=== PATIENT | male | born 1945 | race Caucasian/White ===

== ENCOUNTER → 2018-03-28 | Outpatient (CLI) | payer MEDICARE, OTHER ==
[2018-03-28 13:24] LABS: HEMATOCRIT 62.6 % (42.0-52.0); HEMOGLOBIN 20.6 g/dL (13.5-18.0)
== END ==
LOC: LAB 12:30
PROVIDERS: Internal Medicine
DX: D75.1 Secondary polycythemia (principal)

== ENCOUNTER → 2018-04-02 | Outpatient (CLI) | payer MEDICARE, OTHER ==
[2018-04-02 08:52] LABS: HEMOGLOBIN 19.9 g/dL (13.5-18.0)
[2018-04-02 09:22] LABS: HEMATOCRIT 60.6 % (42.0-52.0)
== END ==
LOC: LAB 08:36
PROVIDERS: Family Medicine
DX: D75.1 Secondary polycythemia (principal)

== ENCOUNTER → 2018-04-09 | Outpatient (CLI) | payer MEDICARE, OTHER ==
[2018-04-09 09:00] LABS: HEMATOCRIT 57.3 % (42.0-52.0); HEMOGLOBIN 19.2 g/dL (13.5-18.0)
== END ==
LOC: LAB 08:44
PROVIDERS: Family Medicine
DX: D75.1 Secondary polycythemia (principal)

== ENCOUNTER → 2018-04-17 | Outpatient (CLI) | payer MEDICARE, OTHER ==
[2018-04-17 10:10] LABS: HEMATOCRIT 58.7 % (42.0-52.0); HEMOGLOBIN 19.3 g/dL (13.5-18.0)
== END ==
LOC: LAB 09:50
PROVIDERS: Family Medicine
DX: D75.1 Secondary polycythemia (principal)

== ENCOUNTER → 2018-04-24 | Outpatient (CLI) | payer MEDICARE, OTHER ==
[2018-04-24 09:01] LABS: HEMOGLOBIN 19.9 g/dL (13.5-18.0)
[2018-04-24 09:05] LABS: HEMATOCRIT 60.6 % (42.0-52.0)
== END ==
LOC: LAB 08:46
PROVIDERS: Family Medicine
DX: D75.1 Secondary polycythemia (principal)

== ENCOUNTER → 2018-05-01 | Outpatient (CLI) | payer MEDICARE, OTHER ==
[2018-05-01 08:49] LABS: HEMATOCRIT 57.3 % (42.0-52.0); HEMOGLOBIN 18.9 g/dL (13.5-18.0)
== END ==
LOC: LAB 08:33
PROVIDERS: Family Medicine
DX: D75.1 Secondary polycythemia (principal)

== ENCOUNTER → 2018-05-09 | Outpatient (CLI) | payer MEDICARE, OTHER ==
[2018-05-09 08:50] LABS: HEMATOCRIT 57.1 % (42.0-52.0); HEMOGLOBIN 18.6 g/dL (13.5-18.0); MEAN CELL VOLUME 96 fl (78-100); MEAN CORPUSCULAR HEMOGLOBIN 31 pg (27-31); MEAN CORPUSCULAR HGB CONC 33 g/dL (33-37); MEAN PLATELET VOLUME 11.6 fl (7.4-10.4); PLATELET COUNT 357 K/mm3 (130-400); RED BLOOD COUNT 5.94 M/mm3 (4.20-5.60); RED CELL DISTRIBUTION WIDTH 15.6 % (11.5-14.5); WHITE BLOOD COUNT 18.2 K/mm3 (4.8-10.8)
[2018-05-09 10:11] LABS: LYMPHOCYTE 7 % (20-51); MONOCYTE 3 % (3-10); NEUTROPHILS 89 % (42-75)
== END ==
LOC: LAB 08:37
PROVIDERS: Family Medicine
DX: D47.1 Chronic myeloproliferative disease (principal)

== ENCOUNTER → 2018-05-13 | Outpatient (CLI) | payer MEDICARE, OTHER ==
[2018-05-13 09:04] LABS: HEMATOCRIT 56.8 % (42.0-52.0); HEMOGLOBIN 18.8 g/dL (13.5-18.0); MEAN CELL VOLUME 96 fl (78-100); MEAN CORPUSCULAR HEMOGLOBIN 32 pg (27-31); MEAN CORPUSCULAR HGB CONC 33 g/dL (33-37); MEAN PLATELET VOLUME 11.8 fl (7.4-10.4); PLATELET COUNT 325 K/mm3 (130-400); RED BLOOD COUNT 5.95 M/mm3 (4.20-5.60); RED CELL DISTRIBUTION WIDTH 15.6 % (11.5-14.5); WHITE BLOOD COUNT 16.6 K/mm3 (4.8-10.8)
[2018-05-13 09:34] LABS: LYMPHOCYTE 6 % (20-51); MONOCYTE 6 % (3-10); NEUTROPHILS 88 % (42-75)
== END ==
LOC: LAB 08:36
PROVIDERS: Family Medicine
DX: D47.1 Chronic myeloproliferative disease (principal)

== ENCOUNTER → 2018-05-20 | Outpatient (CLI) | payer MEDICARE, OTHER ==
[2018-05-20 08:48] LABS: HEMATOCRIT 58.1 % (42.0-52.0); MEAN CELL VOLUME 96 fl (78-100); MEAN CORPUSCULAR HEMOGLOBIN 31 pg (27-31); MEAN CORPUSCULAR HGB CONC 33 g/dL (33-37); MEAN PLATELET VOLUME 11.5 fl (7.4-10.4); PLATELET COUNT 277 K/mm3 (130-400); RED BLOOD COUNT 6.05 M/mm3 (4.20-5.60); RED CELL DISTRIBUTION WIDTH 16.3 % (11.5-14.5); WHITE BLOOD COUNT 15.4 K/mm3 (4.8-10.8)
[2018-05-20 10:14] LABS: LYMPHOCYTE 9 % (20-51); MONOCYTE 5 % (3-10); NEUTROPHILS 86 % (42-75)
== END ==
LOC: LAB 08:34
PROVIDERS: Family Medicine
DX: D47.1 Chronic myeloproliferative disease (principal)

== ENCOUNTER → 2018-05-26 | Outpatient (CLI) | payer MEDICARE, OTHER ==
[2018-05-26 08:56] LABS: HEMATOCRIT 56.9 % (42.0-52.0); HEMOGLOBIN 18.8 g/dL (13.5-18.0); MEAN CELL VOLUME 97 fl (78-100); MEAN CORPUSCULAR HEMOGLOBIN 32 pg (27-31); MEAN CORPUSCULAR HGB CONC 33 g/dL (33-37); MEAN PLATELET VOLUME 11.5 fl (7.4-10.4); PLATELET COUNT 248 K/mm3 (130-400); RED BLOOD COUNT 5.89 M/mm3 (4.20-5.60); RED CELL DISTRIBUTION WIDTH 15.9 % (11.5-14.5); WHITE BLOOD COUNT 16.7 K/mm3 (4.8-10.8)
[2018-05-26 09:41] LABS: NEUTROPHILS 90 % (42-75)
[2018-05-26 09:42] LABS: LYMPHOCYTE 7 % (20-51); MONOCYTE 3 % (3-10)
== END ==
LOC: LAB 08:40
PROVIDERS: Family Medicine
DX: D47.1 Chronic myeloproliferative disease (principal)

== ENCOUNTER → 2018-06-02 | Outpatient (CLI) | payer MEDICARE, OTHER ==
[2018-06-02 08:52] LABS: HEMOGLOBIN 18.9 g/dL (13.5-18.0); MEAN CELL VOLUME 96 fl (78-100); MEAN CORPUSCULAR HEMOGLOBIN 32 pg (27-31); MEAN CORPUSCULAR HGB CONC 33 g/dL (33-37); PLATELET COUNT 267 K/mm3 (130-400); RED BLOOD COUNT 5.91 M/mm3 (4.20-5.60); WHITE BLOOD COUNT 19.2 K/mm3 (4.8-10.8)
[2018-06-02 09:21] LABS: BAND 13 % (0-10); LYMPHOCYTE 10 % (20-51); MONOCYTE 4 % (3-10); NEUTROPHILS 70 % (42-75)
[2018-06-02 09:34] LABS: ALBUMIN 4.8 g/dL (3.5-5.0); CALCIUM 9.5 mg/dL (8.4-10.2); POTASSIUM 3.6 mmol/L (3.6-5.0); TOTAL BILIRUBIN 1.6 mg/dL (0.2-1.3); TOTAL PROTEIN 7.3 g/dL (6.3-8.2)
== END ==
LOC: LAB 08:41
PROVIDERS: Family Medicine
DX: D47.1 Chronic myeloproliferative disease (principal)

== ENCOUNTER → 2018-06-09 | Outpatient (CLI) | payer MEDICARE, OTHER ==
[2018-06-09 08:54] LABS: HEMATOCRIT 56.3 % (42.0-52.0); HEMOGLOBIN 18.3 g/dL (13.5-18.0); MEAN CELL VOLUME 96 fl (78-100); MEAN CORPUSCULAR HEMOGLOBIN 31 pg (27-31); MEAN CORPUSCULAR HGB CONC 33 g/dL (33-37); MEAN PLATELET VOLUME 11.8 fl (7.4-10.4); PLATELET COUNT 260 K/mm3 (130-400); RED BLOOD COUNT 5.86 M/mm3 (4.20-5.60); RED CELL DISTRIBUTION WIDTH 15.7 % (11.5-14.5); WHITE BLOOD COUNT 20.4 K/mm3 (4.8-10.8)
[2018-06-09 09:16] LABS: LYMPHOCYTE 6 % (20-51); MONOCYTE 3 % (3-10); NEUTROPHILS 91 % (42-75)
== END ==
LOC: LAB 08:44
PROVIDERS: Family Medicine
DX: D47.1 Chronic myeloproliferative disease (principal)

== ENCOUNTER → 2018-06-16 | Outpatient (CLI) | payer MEDICARE, OTHER ==
[2018-06-16 08:52] LABS: HEMATOCRIT 55.1 % (42.0-52.0); MEAN CELL VOLUME 95 fl (78-100); MEAN CORPUSCULAR HEMOGLOBIN 31 pg (27-31); MEAN CORPUSCULAR HGB CONC 33 g/dL (33-37); MEAN PLATELET VOLUME 11.8 fl (7.4-10.4); PLATELET COUNT 215 K/mm3 (130-400); RED CELL DISTRIBUTION WIDTH 15.4 % (11.5-14.5); WHITE BLOOD COUNT 17.8 K/mm3 (4.8-10.8)
[2018-06-16 09:28] LABS: BAND 1 % (0-10); LYMPHOCYTE 9 % (20-51); MONOCYTE 1 % (3-10); NEUTROPHILS 87 % (42-75)
== END ==
LOC: LAB 08:40
PROVIDERS: Family Medicine
DX: C94.6 Myelodysplastic disease, not elsewhere classified (principal)

== ENCOUNTER → 2018-06-23 | Outpatient (CLI) | payer MEDICARE, OTHER ==
[2018-06-23 08:47] LABS: HEMATOCRIT 51.8 % (42.0-52.0); HEMOGLOBIN 17.1 g/dL (13.5-18.0); MEAN CELL VOLUME 95 fl (78-100); MEAN CORPUSCULAR HEMOGLOBIN 32 pg (27-31); MEAN CORPUSCULAR HGB CONC 33 g/dL (33-37); MEAN PLATELET VOLUME 11.7 fl (7.4-10.4); PLATELET COUNT 147 K/mm3 (130-400); RED BLOOD COUNT 5.43 M/mm3 (4.20-5.60); RED CELL DISTRIBUTION WIDTH 15.7 % (11.5-14.5); WHITE BLOOD COUNT 15.8 K/mm3 (4.8-10.8)
[2018-06-23 09:08] LABS: LYMPHOCYTE 8 % (20-51); MONOCYTE 3 % (3-10); NEUTROPHILS 83 % (42-75)
== END ==
LOC: LAB 08:36
PROVIDERS: Family Medicine
DX: C94.6 Myelodysplastic disease, not elsewhere classified (principal)

== ENCOUNTER → 2018-06-30 | Outpatient (CLI) | payer MEDICARE, OTHER ==
[2018-06-30 08:58] LABS: HEMATOCRIT 49.7 % (42.0-52.0); MEAN CELL VOLUME 96 fl (78-100); MEAN CORPUSCULAR HEMOGLOBIN 31 pg (27-31); MEAN CORPUSCULAR HGB CONC 32 g/dL (33-37); PLATELET COUNT 144 K/mm3 (130-400); RED BLOOD COUNT 5.17 M/mm3 (4.20-5.60); RED CELL DISTRIBUTION WIDTH 15.8 % (11.5-14.5); WHITE BLOOD COUNT 16.3 K/mm3 (4.8-10.8)
[2018-06-30 09:38] LABS: MEAN PLATELET VOLUME 12.1 fl (7.4-10.4)
[2018-06-30 10:31] LABS: BAND 1 % (0-10); LYMPHOCYTE 8 % (20-51); MONOCYTE 3 % (3-10); NEUTROPHILS 85 % (42-75); OVALOCYTES 1+
== END ==
LOC: LAB 08:47
PROVIDERS: Family Medicine
DX: D47.1 Chronic myeloproliferative disease (principal)

== ENCOUNTER → 2018-07-07 | Outpatient (CLI) | payer MEDICARE, OTHER ==
[2018-07-07 09:02] LABS: HEMATOCRIT 46.9 % (42.0-52.0); HEMOGLOBIN 15.2 g/dL (13.5-18.0); MEAN CELL VOLUME 97 fl (78-100); MEAN CORPUSCULAR HEMOGLOBIN 31 pg (27-31); MEAN CORPUSCULAR HGB CONC 32 g/dL (33-37); MEAN PLATELET VOLUME 11.2 fl (7.4-10.4); PLATELET COUNT 228 K/mm3 (130-400); RED BLOOD COUNT 4.85 M/mm3 (4.20-5.60); WHITE BLOOD COUNT 16.8 K/mm3 (4.8-10.8)
[2018-07-07 09:34] LABS: NEUTROPHILS 88 % (42-75)
[2018-07-07 09:35] LABS: LYMPHOCYTE 11 % (20-51); MONOCYTE 1 % (3-10); OVALOCYTES 2+
== END ==
LOC: LAB 08:45
PROVIDERS: Family Medicine
DX: D47.1 Chronic myeloproliferative disease (principal)

== ENCOUNTER → 2018-07-14 | Outpatient (CLI) | payer MEDICARE, OTHER ==
[2018-07-14 15:48] LABS: HEMATOCRIT 45.2 % (42.0-52.0); HEMOGLOBIN 14.5 g/dL (13.5-18.0); MEAN CELL VOLUME 98 fl (78-100); MEAN CORPUSCULAR HEMOGLOBIN 32 pg (27-31); MEAN CORPUSCULAR HGB CONC 32 g/dL (33-37); MEAN PLATELET VOLUME 11.5 fl (7.4-10.4); PLATELET COUNT 238 K/mm3 (130-400); RED BLOOD COUNT 4.61 M/mm3 (4.20-5.60); RED CELL DISTRIBUTION WIDTH 16.7 % (11.5-14.5); WHITE BLOOD COUNT 15.6 K/mm3 (4.8-10.8)
[2018-07-14 16:20] LABS: ALBUMIN 4.4 g/dL (3.5-5.0); CALCIUM 9.3 mg/dL (8.4-10.2); POTASSIUM 3.8 mmol/L (3.6-5.0); TOTAL BILIRUBIN 0.9 mg/dL (0.2-1.3); TOTAL PROTEIN 6.8 g/dL (6.3-8.2)
[2018-07-14 16:25] LABS: LYMPHOCYTE 8 % (20-51); MONOCYTE 5 % (3-10); NEUTROPHILS 86 % (42-75)
== END ==
LOC: LAB 15:27
PROVIDERS: Family Medicine
DX: D47.1 Chronic myeloproliferative disease (principal)

== ENCOUNTER → 2018-08-11 | Outpatient (CLI) | payer MEDICARE, OTHER ==
[2018-08-11 15:08] LABS: HEMATOCRIT 43.4 % (42.0-52.0); MEAN CELL VOLUME 98 fl (78-100); MEAN CORPUSCULAR HEMOGLOBIN 32 pg (27-31); MEAN CORPUSCULAR HGB CONC 32 g/dL (33-37); MEAN PLATELET VOLUME 10.4 fl (7.4-10.4); PLATELET COUNT 226 K/mm3 (130-400); RED BLOOD COUNT 4.43 M/mm3 (4.20-5.60); RED CELL DISTRIBUTION WIDTH 16.4 % (11.5-14.5); WHITE BLOOD COUNT 11.1 K/mm3 (4.8-10.8)
[2018-08-11 15:57] LABS: LYMPHOCYTE 13 % (20-51); NEUTROPHILS 86 % (42-75)
[2018-08-11 15:58] LABS: MONOCYTE 0 % (3-10)
== END ==
LOC: LAB 14:48
PROVIDERS: Family Medicine
DX: D47.1 Chronic myeloproliferative disease (principal)

== ENCOUNTER → 2018-09-01 | Outpatient (CLI) | payer MEDICARE, OTHER ==
[2018-09-01 15:18] LABS: HEMATOCRIT 44.6 % (42.0-52.0); HEMOGLOBIN 14.6 g/dL (13.5-18.0); MEAN CELL VOLUME 101 fl (78-100); MEAN CORPUSCULAR HEMOGLOBIN 33 pg (27-31); MEAN CORPUSCULAR HGB CONC 33 g/dL (33-37); MEAN PLATELET VOLUME 11.3 fl (7.4-10.4); PLATELET COUNT 169 K/mm3 (130-400); RED BLOOD COUNT 4.44 M/mm3 (4.20-5.60); WHITE BLOOD COUNT 14.7 K/mm3 (4.8-10.8)
[2018-09-01 16:13] LABS: LYMPHOCYTE 18 % (20-51); MONOCYTE 2 % (3-10); NEUTROPHILS 80 % (42-75)
== END ==
LOC: LAB 15:06
PROVIDERS: Family Medicine
DX: D47.1 Chronic myeloproliferative disease (principal)

== ENCOUNTER → 2018-09-22 | Outpatient (CLI) | payer MEDICARE, OTHER ==
[2018-09-22 15:38] LABS: HEMATOCRIT 44.3 % (42.0-52.0); HEMOGLOBIN 14.5 g/dL (13.5-18.0); MEAN CELL VOLUME 104 fl (78-100); MEAN CORPUSCULAR HEMOGLOBIN 34 pg (27-31); MEAN CORPUSCULAR HGB CONC 33 g/dL (33-37); MEAN PLATELET VOLUME 11.8 fl (7.4-10.4); PLATELET COUNT 127 K/mm3 (130-400); RED BLOOD COUNT 4.28 M/mm3 (4.20-5.60); RED CELL DISTRIBUTION WIDTH 17.1 % (11.5-14.5)
[2018-09-22 16:50] LABS: LYMPHOCYTE 12 % (20-51); MONOCYTE 6 % (3-10); NEUTROPHILS 79 % (42-75)
== END ==
LOC: LAB 15:08
PROVIDERS: Family Medicine
DX: C94.6 Myelodysplastic disease, not elsewhere classified (principal)

== ENCOUNTER → 2018-10-13 | Outpatient (CLI) | payer MEDICARE, OTHER ==
[2018-10-13 15:12] LABS: HEMATOCRIT 43.7 % (42.0-52.0); MEAN CELL VOLUME 106 fl (78-100); MEAN CORPUSCULAR HGB CONC 34 g/dL (33-37); PLATELET COUNT 248 K/mm3 (130-400); RED BLOOD COUNT 4.11 M/mm3 (4.20-5.60); RED CELL DISTRIBUTION WIDTH 17.4 % (11.5-14.5); WHITE BLOOD COUNT 11.1 K/mm3 (4.8-10.8)
[2018-10-13 15:26] LABS: MEAN CORPUSCULAR HEMOGLOBIN 37 pg (27-31)
[2018-10-13 15:42] LABS: ALBUMIN 4.6 g/dL (3.5-5.0); CALCIUM 9.7 mg/dL (8.4-10.2); POTASSIUM 4.3 mmol/L (3.6-5.0); TOTAL PROTEIN 6.7 g/dL (6.3-8.2)
[2018-10-13 15:46] LABS: LYMPHOCYTE 16 % (20-51); MONOCYTE 2 % (3-10); NEUTROPHILS 81 % (42-75)
== END ==
LOC: LAB 15:00
PROVIDERS: Family Medicine
DX: D47.1 Chronic myeloproliferative disease (principal)

== ENCOUNTER → 2018-11-11 | Outpatient (CLI) | payer MEDICARE, OTHER ==
[2018-11-11 14:17] LABS: HEMATOCRIT 42.4 % (42.0-52.0); HEMOGLOBIN 14.5 g/dL (13.5-18.0); MEAN CELL VOLUME 110 fl (78-100); MEAN CORPUSCULAR HGB CONC 34 g/dL (33-37); PLATELET COUNT 215 K/mm3 (130-400); RED BLOOD COUNT 3.84 M/mm3 (4.20-5.60); RED CELL DISTRIBUTION WIDTH 16.1 % (11.5-14.5)
[2018-11-11 14:21] LABS: MEAN CORPUSCULAR HEMOGLOBIN 38 pg (27-31)
[2018-11-11 15:18] LABS: LYMPHOCYTE 9 % (20-51); MONOCYTE 2 % (3-10); NEUTROPHILS 87 % (42-75)
== END ==
LOC: LAB 14:08
PROVIDERS: Family Medicine
DX: C94.6 Myelodysplastic disease, not elsewhere classified (principal)

== ENCOUNTER → 2018-12-08 | Outpatient (CLI) | payer MEDICARE, OTHER ==
[2018-12-08 09:09] LABS: HEMATOCRIT 42.3 % (42.0-52.0); HEMOGLOBIN 15.2 g/dL (13.5-18.0); MEAN CORPUSCULAR HGB CONC 36 g/dL (33-37); MEAN PLATELET VOLUME 11.3 fl (7.4-10.4); PLATELET COUNT 213 K/mm3 (130-400); RED CELL DISTRIBUTION WIDTH 14.6 % (11.5-14.5); WHITE BLOOD COUNT 10.9 K/mm3 (4.8-10.8)
[2018-12-08 09:33] LABS: MEAN CELL VOLUME 111 fl (78-100); MEAN CORPUSCULAR HEMOGLOBIN 40 pg (27-31)
[2018-12-08 09:34] LABS: LYMPHOCYTE 9 % (20-51); MONOCYTE 3 % (3-10); NEUTROPHILS 88 % (42-75)
== END ==
LOC: LAB 08:54
PROVIDERS: Family Medicine
DX: D47.1 Chronic myeloproliferative disease (principal)

== ENCOUNTER → 2019-01-05 | Outpatient (CLI) | payer MEDICARE, OTHER ==
[2019-01-05 09:08] LABS: HEMOGLOBIN 15.2 g/dL (13.5-18.0); MEAN CORPUSCULAR HGB CONC 35 g/dL (33-37); MEAN PLATELET VOLUME 11.8 fl (7.4-10.4); PLATELET COUNT 179 K/mm3 (130-400); RED BLOOD COUNT 3.83 M/mm3 (4.20-5.60); RED CELL DISTRIBUTION WIDTH 13.5 % (11.5-14.5); WHITE BLOOD COUNT 11.7 K/mm3 (4.8-10.8)
[2019-01-05 09:11] LABS: ALBUMIN 4.4 g/dL (3.4-4.8)
[2019-01-05 09:13] LABS: CALCIUM 9.4 mg/dL (8.3-10.5)
[2019-01-05 09:14] LABS: TOTAL PROTEIN 6.7 g/dL (6.2-8.1)
[2019-01-05 09:27] LABS: MEAN CELL VOLUME 115 fl (78-100); MEAN CORPUSCULAR HEMOGLOBIN 40 pg (27-31)
[2019-01-05 09:50] LABS: LYMPHOCYTE 6 % (20-51); MONOCYTE 3 % (3-10); NEUTROPHILS 90 % (42-75); OVALOCYTES 2+
== END ==
LOC: LAB 08:44
PROVIDERS: Family Medicine
DX: D47.1 Chronic myeloproliferative disease (principal)

== ENCOUNTER → 2019-02-02 | Outpatient (CLI) | payer MEDICARE, OTHER ==
[2019-02-02 10:28] LABS: HEMATOCRIT 43.1 % (42.0-52.0); HEMOGLOBIN 14.9 g/dL (13.5-18.0); MEAN CORPUSCULAR HGB CONC 35 g/dL (33-37); MEAN PLATELET VOLUME 11.4 fl (7.4-10.4); PLATELET COUNT 199 K/mm3 (130-400); RED BLOOD COUNT 3.76 M/mm3 (4.20-5.60); RED CELL DISTRIBUTION WIDTH 13.5 % (11.5-14.5); WHITE BLOOD COUNT 10.5 K/mm3 (4.8-10.8)
[2019-02-02 10:43] LABS: MEAN CELL VOLUME 115 fl (78-100); MEAN CORPUSCULAR HEMOGLOBIN 40 pg (27-31)
[2019-02-02 10:54] LABS: LYMPHOCYTE 6 % (20-51); MONOCYTE 5 % (3-10); NEUTROPHILS 87 % (42-75)
== END ==
LOC: LAB 10:05
PROVIDERS: Family Medicine
DX: D47.1 Chronic myeloproliferative disease (principal)

== ENCOUNTER → 2019-03-30 | Outpatient (CLI) | payer MEDICARE, OTHER ==
[2019-03-30 13:30] LABS: HEMOGLOBIN 15.3 g/dL (13.5-18.0); MEAN CORPUSCULAR HGB CONC 35 g/dL (33-37); MEAN PLATELET VOLUME 11.7 fl (7.4-10.4); PLATELET COUNT 187 K/mm3 (130-400); RED BLOOD COUNT 3.91 M/mm3 (4.20-5.60); RED CELL DISTRIBUTION WIDTH 13.8 % (11.5-14.5); WHITE BLOOD COUNT 12.7 K/mm3 (4.8-10.8)
[2019-03-30 13:52] LABS: ALBUMIN 4.3 g/dL (3.4-4.8)
[2019-03-30 13:53] LABS: POTASSIUM 4.2 mmol/L (3.5-5.1)
[2019-03-30 13:54] LABS: CALCIUM 9.3 mg/dL (8.3-10.5)
[2019-03-30 13:55] LABS: TOTAL PROTEIN 6.7 g/dL (6.2-8.1)
[2019-03-30 13:57] LABS: TOTAL BILIRUBIN 1.4 mg/dL (0.2-1.2)
[2019-03-30 14:36] LABS: MEAN CELL VOLUME 113 fl (78-100); MEAN CORPUSCULAR HEMOGLOBIN 39 pg (27-31)
[2019-03-30 14:38] LABS: LYMPHOCYTE 12 % (20-51); MONOCYTE 5 % (3-10); NEUTROPHILS 81 % (42-75)
== END ==
LOC: LAB 13:13
PROVIDERS: Family Medicine
DX: D47.1 Chronic myeloproliferative disease (principal)

== ENCOUNTER → 2019-04-27 | Outpatient (CLI) | payer MEDICARE, OTHER ==
[2019-04-27 09:49] LABS: HEMATOCRIT 45.8 % (42.0-52.0); HEMOGLOBIN 15.9 g/dL (13.5-18.0); MEAN CORPUSCULAR HGB CONC 35 g/dL (33-37); MEAN PLATELET VOLUME 11.5 fl (7.4-10.4); PLATELET COUNT 204 K/mm3 (130-400); RED BLOOD COUNT 4.05 M/mm3 (4.20-5.60); RED CELL DISTRIBUTION WIDTH 13.8 % (11.5-14.5); WHITE BLOOD COUNT 12.1 K/mm3 (4.8-10.8)
[2019-04-27 10:00] LABS: MEAN CELL VOLUME 113 fl (78-100); MEAN CORPUSCULAR HEMOGLOBIN 39 pg (27-31)
[2019-04-27 10:36] LABS: LYMPHOCYTE 10 % (20-51); MONOCYTE 3 % (3-10); NEUTROPHILS 87 % (42-75); OVALOCYTES 1+
== END ==
LOC: LAB 09:36
PROVIDERS: Family Medicine
DX: C20 Malignant neoplasm of rectum (principal)

== ENCOUNTER → 2019-05-25 | Outpatient (CLI) | payer MEDICARE, OTHER ==
[2019-05-25 09:26] LABS: HEMATOCRIT 44.3 % (42.0-52.0); HEMOGLOBIN 15.4 g/dL (13.5-18.0); MEAN CORPUSCULAR HGB CONC 35 g/dL (33-37); MEAN PLATELET VOLUME 11.4 fl (7.4-10.4); PLATELET COUNT 162 K/mm3 (130-400); RED BLOOD COUNT 3.89 M/mm3 (4.20-5.60); RED CELL DISTRIBUTION WIDTH 13.8 % (11.5-14.5); WHITE BLOOD COUNT 10.8 K/mm3 (4.8-10.8)
[2019-05-25 09:52] LABS: MEAN CELL VOLUME 114 fl (78-100); MEAN CORPUSCULAR HEMOGLOBIN 40 pg (27-31)
[2019-05-25 09:53] LABS: LYMPHOCYTE 16 % (20-51); MONOCYTE 2 % (3-10); NEUTROPHILS 82 % (42-75); OVALOCYTES 1+; POLYCHROMASIA 1+
== END ==
LOC: LAB 09:15
PROVIDERS: Family Medicine
DX: C20 Malignant neoplasm of rectum (principal)

== ENCOUNTER → 2019-06-22 | Outpatient (CLI) | payer MEDICARE, OTHER ==
[2019-06-22 09:49] LABS: HEMATOCRIT 43.4 % (42.0-52.0); HEMOGLOBIN 14.9 g/dL (13.5-18.0); MEAN CELL VOLUME 111 fl (78-100); MEAN CORPUSCULAR HEMOGLOBIN 38 pg (27-31); MEAN CORPUSCULAR HGB CONC 34 g/dL (33-37); MEAN PLATELET VOLUME 11.3 fl (7.4-10.4); PLATELET COUNT 182 K/mm3 (130-400); RED CELL DISTRIBUTION WIDTH 13.3 % (11.5-14.5); WHITE BLOOD COUNT 9.8 K/mm3 (4.8-10.8)
[2019-06-22 10:01] LABS: LYMPHOCYTE 10 % (20-51); MONOCYTE 8 % (3-10); NEUTROPHILS 80 % (42-75); OVALOCYTES 2+
== END ==
LOC: LAB 09:37
PROVIDERS: Family Medicine
DX: C20 Malignant neoplasm of rectum (principal)

== ENCOUNTER → 2019-07-20 | Outpatient (CLI) | payer MEDICARE, OTHER ==
[2019-07-20 09:49] LABS: HEMATOCRIT 44.3 % (42.0-52.0); HEMOGLOBIN 16.3 g/dL (13.5-18.0); MEAN CELL VOLUME 108 fl (78-100); MEAN CORPUSCULAR HEMOGLOBIN 40 pg (27-31); MEAN CORPUSCULAR HGB CONC 37 g/dL (33-37); MEAN PLATELET VOLUME 11.4 fl (7.4-10.4); PLATELET COUNT 195 K/mm3 (130-400); RED CELL DISTRIBUTION WIDTH 13.7 % (11.5-14.5); WHITE BLOOD COUNT 12.7 K/mm3 (4.8-10.8)
[2019-07-20 10:17] LABS: LYMPHOCYTE 8 % (20-51); MONOCYTE 6 % (3-10); NEUTROPHILS 86 % (42-75); OVALOCYTES 1+
== END ==
LOC: LAB 09:18
PROVIDERS: Family Medicine
DX: C20 Malignant neoplasm of rectum (principal)

== ENCOUNTER → 2019-08-17 | Outpatient (CLI) | payer MEDICARE, OTHER ==
[2019-08-17 09:22] LABS: HEMOGLOBIN 15.8 g/dL (13.5-18.0); RED CELL DISTRIBUTION WIDTH 13.9 % (11.5-14.5)
[2019-08-17 09:23] LABS: HEMATOCRIT 43.9 % (42.0-52.0); MEAN CELL VOLUME 109 fl (78-100); MEAN CORPUSCULAR HGB CONC 36 g/dL (33-37); MEAN PLATELET VOLUME 11.2 fl (7.4-10.4); PLATELET COUNT 210 K/mm3 (130-400); RED BLOOD COUNT 4.03 M/mm3 (4.20-5.60); WHITE BLOOD COUNT 13.3 K/mm3 (4.8-10.8)
[2019-08-17 09:27] LABS: MEAN CORPUSCULAR HEMOGLOBIN 39 pg (27-31)
[2019-08-17 09:40] LABS: ALBUMIN 4.3 g/dL (3.4-4.8); POTASSIUM 3.9 mmol/L (3.5-5.1)
[2019-08-17 09:41] LABS: CALCIUM 9.2 mg/dL (8.3-10.5)
[2019-08-17 09:43] LABS: TOTAL PROTEIN 6.4 g/dL (6.2-8.1)
[2019-08-17 09:44] LABS: TOTAL BILIRUBIN 1.2 mg/dL (0.2-1.2)
[2019-08-17 10:12] LABS: LYMPHOCYTE 10 % (20-51); MONOCYTE 2 % (3-10); NEUTROPHILS 85 % (42-75)
== END ==
LOC: LAB 09:01
PROVIDERS: Family Medicine
DX: C20 Malignant neoplasm of rectum (principal)

== ENCOUNTER → 2019-09-28 | Outpatient (CLI) | payer MEDICARE, OTHER ==
[2019-09-28 11:21] LABS: HEMATOCRIT 43.8 % (42.0-52.0); HEMOGLOBIN 16.2 g/dL (13.5-18.0); MEAN CELL VOLUME 109 fl (78-100); MEAN CORPUSCULAR HEMOGLOBIN 40 pg (27-31); MEAN CORPUSCULAR HGB CONC 37 g/dL (33-37); MEAN PLATELET VOLUME 11.4 fl (7.4-10.4); PLATELET COUNT 177 K/mm3 (130-400); RED BLOOD COUNT 4.03 M/mm3 (4.20-5.60); RED CELL DISTRIBUTION WIDTH 14.2 % (11.5-14.5)
[2019-09-28 11:36] LABS: LYMPHOCYTE 5 % (20-51); MONOCYTE 2 % (3-10); NEUTROPHILS 92 % (42-75); OVALOCYTES 2+
== END ==
LOC: LAB 09:35
PROVIDERS: Family Medicine
DX: D47.1 Chronic myeloproliferative disease (principal)

== ENCOUNTER → 2019-10-26 | Outpatient (CLI) | payer MEDICARE, OTHER ==
[2019-10-26 08:58] LABS: HEMATOCRIT 43.5 % (42.0-52.0); HEMOGLOBIN 15.6 g/dL (13.5-18.0); MEAN CORPUSCULAR HGB CONC 36 g/dL (33-37); MEAN PLATELET VOLUME 11.5 fl (7.4-10.4); PLATELET COUNT 184 K/mm3 (130-400); RED BLOOD COUNT 3.91 M/mm3 (4.20-5.60); RED CELL DISTRIBUTION WIDTH 14.8 % (11.5-14.5); WHITE BLOOD COUNT 14.4 K/mm3 (4.8-10.8)
[2019-10-26 09:25] LABS: MEAN CELL VOLUME 111 fl (78-100); MEAN CORPUSCULAR HEMOGLOBIN 40 pg (27-31)
[2019-10-26 10:08] LABS: LYMPHOCYTE 12 % (20-51); MONOCYTE 1 % (3-10); NEUTROPHILS 87 % (42-75); OVALOCYTES 2+
== END ==
LOC: LAB 08:43
PROVIDERS: Family Medicine
DX: D47.1 Chronic myeloproliferative disease (principal)

== ENCOUNTER → 2019-11-23 | Outpatient (CLI) | payer MEDICARE, OTHER ==
[2019-11-23 09:23] LABS: HEMOGLOBIN 15.8 g/dL (13.5-18.0); MEAN CELL VOLUME 111 fl (78-100); MEAN CORPUSCULAR HEMOGLOBIN 41 pg (27-31); MEAN CORPUSCULAR HGB CONC 37 g/dL (33-37); MEAN PLATELET VOLUME 10.9 fl (7.4-10.4); PLATELET COUNT 175 K/mm3 (130-400); RED BLOOD COUNT 3.88 M/mm3 (4.20-5.60); RED CELL DISTRIBUTION WIDTH 13.8 % (11.5-14.5); WHITE BLOOD COUNT 12.6 K/mm3 (4.8-10.8)
[2019-11-23 09:38] LABS: ALBUMIN 4.4 g/dL (3.4-4.8)
[2019-11-23 09:40] LABS: CALCIUM 9.1 mg/dL (8.3-10.5)
[2019-11-23 09:41] LABS: TOTAL PROTEIN 6.4 g/dL (6.2-8.1)
[2019-11-23 09:42] LABS: LYMPHOCYTE 12 % (20-51); MONOCYTE 1 % (3-10); NEUTROPHILS 84 % (42-75)
[2019-11-23 09:43] LABS: OVALOCYTES 1+; TARGET CELLS 1+; TOTAL BILIRUBIN 1.6 mg/dL (0.2-1.2)
== END ==
LOC: LAB 09:10
PROVIDERS: Family Medicine
DX: D47.1 Chronic myeloproliferative disease (principal)

== ENCOUNTER → 2020-01-04 | Outpatient (CLI) | payer MEDICARE, OTHER ==
[2020-01-04 09:10] LABS: HEMATOCRIT 44.4 % (42.0-52.0); HEMOGLOBIN 15.3 g/dL (13.5-18.0); MEAN CORPUSCULAR HGB CONC 35 g/dL (33-37); MEAN PLATELET VOLUME 11.9 fl (7.4-10.4); PLATELET COUNT 202 K/mm3 (130-400); RED BLOOD COUNT 3.89 M/mm3 (4.20-5.60); WHITE BLOOD COUNT 14.4 K/mm3 (4.8-10.8)
[2020-01-04 09:14] LABS: MEAN CELL VOLUME 114 fl (78-100); MEAN CORPUSCULAR HEMOGLOBIN 39 pg (27-31)
[2020-01-04 09:58] LABS: LYMPHOCYTE 7 % (20-51); MONOCYTE 3 % (3-10); NEUTROPHILS 89 % (42-75); OVALOCYTES 2+
== END ==
LOC: LAB 08:54
PROVIDERS: Family Medicine
DX: D47.1 Chronic myeloproliferative disease (principal)

== ENCOUNTER → 2020-02-01 | Outpatient (CLI) | payer MEDICARE, OTHER ==
[2020-02-01 09:02] LABS: HEMATOCRIT 43.4 % (42.0-52.0); MEAN CORPUSCULAR HGB CONC 35 g/dL (33-37); MEAN PLATELET VOLUME 11.4 fl (7.4-10.4); PLATELET COUNT 191 K/mm3 (130-400); RED BLOOD COUNT 3.79 M/mm3 (4.20-5.60); RED CELL DISTRIBUTION WIDTH 13.9 % (11.5-14.5); WHITE BLOOD COUNT 11.9 K/mm3 (4.8-10.8)
[2020-02-01 09:35] LABS: MEAN CELL VOLUME 115 fl (78-100); MEAN CORPUSCULAR HEMOGLOBIN 40 pg (27-31)
[2020-02-01 09:36] LABS: LYMPHOCYTE 10 % (20-51); MONOCYTE 5 % (3-10); NEUTROPHILS 85 % (42-75); OVALOCYTES 2+
== END ==
LOC: LAB 08:53
PROVIDERS: Family Medicine
DX: D47.1 Chronic myeloproliferative disease (principal)

== ENCOUNTER → 2020-02-29 | Outpatient (CLI) | payer MEDICARE, OTHER ==
[2020-02-29 09:10] LABS: HEMATOCRIT 42.7 % (42.0-52.0); HEMOGLOBIN 15.1 g/dL (13.5-18.0); MEAN CORPUSCULAR HGB CONC 35 g/dL (33-37); MEAN PLATELET VOLUME 11.5 fl (7.4-10.4); PLATELET COUNT 183 K/mm3 (130-400); RED BLOOD COUNT 3.75 M/mm3 (4.20-5.60); RED CELL DISTRIBUTION WIDTH 13.9 % (11.5-14.5); WHITE BLOOD COUNT 12.4 K/mm3 (4.8-10.8)
[2020-02-29 09:12] LABS: MEAN CELL VOLUME 114 fl (78-100); MEAN CORPUSCULAR HEMOGLOBIN 40 pg (27-31)
[2020-02-29 09:28] LABS: ALBUMIN 4.2 g/dL (3.4-4.8); POTASSIUM 4.2 mmol/L (3.5-5.1)
[2020-02-29 09:29] LABS: CALCIUM 9.1 mg/dL (8.3-10.5)
[2020-02-29 09:30] LABS: LYMPHOCYTE 11 % (20-51); MONOCYTE 2 % (3-10); NEUTROPHILS 86 % (42-75); OVALOCYTES 2+; TOTAL PROTEIN 6.5 g/dL (6.2-8.1)
[2020-02-29 09:32] LABS: TOTAL BILIRUBIN 1.1 mg/dL (0.2-1.2)
== END ==
LOC: LAB 08:59
PROVIDERS: Family Medicine
DX: D47.1 Chronic myeloproliferative disease (principal)

== ENCOUNTER → 2020-03-28 | Outpatient (CLI) | payer MEDICARE, OTHER ==
[2020-03-28 09:53] LABS: HEMATOCRIT 44.3 % (42.0-52.0); HEMOGLOBIN 15.9 g/dL (13.5-18.0); MEAN CELL VOLUME 112 fl (78-100); MEAN CORPUSCULAR HEMOGLOBIN 40 pg (27-31); MEAN CORPUSCULAR HGB CONC 36 g/dL (33-37); MEAN PLATELET VOLUME 11.3 fl (7.4-10.4); PLATELET COUNT 201 K/mm3 (130-400); RED BLOOD COUNT 3.97 M/mm3 (4.20-5.60); WHITE BLOOD COUNT 11.7 K/mm3 (4.8-10.8)
[2020-03-28 09:54] LABS: LYMPHOCYTE 11 % (20-51); MONOCYTE 1 % (3-10); NEUTROPHILS 88 % (42-75); OVALOCYTES 1+
== END ==
LOC: LAB 09:19
PROVIDERS: Family Medicine
DX: D47.1 Chronic myeloproliferative disease (principal)

== ENCOUNTER → 2020-04-25 | Outpatient (CLI) | payer MEDICARE, OTHER ==
[2020-04-25 09:16] LABS: HEMATOCRIT 41.4 % (42.0-52.0); MEAN CORPUSCULAR HGB CONC 36 g/dL (33-37); PLATELET COUNT 183 K/mm3 (130-400); RED BLOOD COUNT 3.68 M/mm3 (4.20-5.60); WHITE BLOOD COUNT 9.7 K/mm3 (4.8-10.8)
[2020-04-25 09:31] LABS: LYMPHOCYTE 13 % (20-51); MEAN CELL VOLUME 113 fl (78-100); MEAN CORPUSCULAR HEMOGLOBIN 41 pg (27-31); MONOCYTE 4 % (3-10); NEUTROPHILS 83 % (42-75)
[2020-04-25 09:32] LABS: OVALOCYTES 2+
== END ==
LOC: LAB 09:06
PROVIDERS: Family Medicine
DX: C94.6 Myelodysplastic disease, not elsewhere classified (principal)

== ENCOUNTER → 2020-05-30 | Outpatient (CLI) | payer MEDICARE, OTHER ==
[2020-05-30 10:21] LABS: HEMATOCRIT 41.2 % (42.0-52.0); HEMOGLOBIN 14.3 g/dL (13.5-18.0); MEAN CORPUSCULAR HGB CONC 35 g/dL (33-37); MEAN PLATELET VOLUME 10.8 fl (7.4-10.4); PLATELET COUNT 192 K/mm3 (130-400); RED BLOOD COUNT 3.61 M/mm3 (4.20-5.60); RED CELL DISTRIBUTION WIDTH 13.9 % (11.5-14.5); WHITE BLOOD COUNT 8.5 K/mm3 (4.8-10.8)
[2020-05-30 10:50] LABS: ALBUMIN 4.3 g/dL (3.4-4.8); MEAN CELL VOLUME 114 fl (78-100); MEAN CORPUSCULAR HEMOGLOBIN 40 pg (27-31); POTASSIUM 4.7 mmol/L (3.5-5.1)
[2020-05-30 10:51] LABS: CALCIUM 9.1 mg/dL (8.3-10.5)
[2020-05-30 10:52] LABS: TOTAL PROTEIN 6.5 g/dL (6.2-8.1)
[2020-05-30 10:54] LABS: TOTAL BILIRUBIN 1.5 mg/dL (0.2-1.2)
[2020-05-30 11:33] LABS: BAND 2 % (0-10); LYMPHOCYTE 15 % (20-51); MONOCYTE 3 % (3-10); NEUTROPHILS 78 % (42-75); OVALOCYTES 2+
== END ==
LOC: LAB 09:58
PROVIDERS: Family Medicine
DX: D47.1 Chronic myeloproliferative disease (principal)

== ENCOUNTER → 2020-07-19 | Outpatient (CLI) | payer MEDICARE, OTHER ==
[2020-07-19 09:01] LABS: HEMOGLOBIN 14.3 g/dL (13.5-18.0); MEAN CORPUSCULAR HGB CONC 35 g/dL (33-37); MEAN PLATELET VOLUME 11.3 fl (7.4-10.4); PLATELET COUNT 180 K/mm3 (130-400); RED BLOOD COUNT 3.57 M/mm3 (4.20-5.60); RED CELL DISTRIBUTION WIDTH 13.7 % (11.5-14.5); WHITE BLOOD COUNT 9.8 K/mm3 (4.8-10.8)
[2020-07-19 09:57] LABS: MEAN CELL VOLUME 115 fl (78-100); MEAN CORPUSCULAR HEMOGLOBIN 40 pg (27-31)
[2020-07-19 10:07] LABS: LYMPHOCYTE 14 % (20-51); MONOCYTE 1 % (3-10); NEUTROPHILS 85 % (42-75)
[2020-07-19 10:08] LABS: OVALOCYTES 1+
== END ==
LOC: LAB 08:46
PROVIDERS: Family Medicine
DX: C94.6 Myelodysplastic disease, not elsewhere classified (principal)

== ENCOUNTER → 2020-08-30 | Outpatient (CLI) | payer MEDICARE, OTHER ==
[2020-08-30 08:53] LABS: BASO # 0.1 (0.02-0.10); EOS # 0.1 (0.04-0.40); EOS % 0.6 % (0.0-4.0); HEMATOCRIT 43.4 % (42.0-52.0); LYMPH# 1.4 (1.50-4.00); MEAN CORPUSCULAR HGB CONC 35 g/dL (33-37); MEAN PLATELET VOLUME 11.2 fl (7.4-10.4); MONO # 0.4 (0.20-0.80); NEU # 7.6 (1.40-6.50); PLATELET COUNT 208 K/mm3 (130-400); RED BLOOD COUNT 3.76 M/mm3 (4.20-5.60); RED CELL DISTRIBUTION WIDTH 13.9 % (11.5-14.5); WHITE BLOOD COUNT 9.5 K/mm3 (4.8-10.8)
[2020-08-30 09:08] LABS: ALBUMIN 4.4 g/dL (3.4-4.8); POTASSIUM 4.1 mmol/L (3.5-5.1)
[2020-08-30 09:09] LABS: CALCIUM 9.2 mg/dL (8.3-10.5); MEAN CELL VOLUME 115 fl (78-100); MEAN CORPUSCULAR HEMOGLOBIN 40 pg (27-31)
[2020-08-30 09:10] LABS: TOTAL PROTEIN 6.8 g/dL (6.2-8.1)
[2020-08-30 09:12] LABS: TOTAL BILIRUBIN 1.7 mg/dL (0.2-1.2)
== END ==
LOC: LAB 08:39
PROVIDERS: Family Medicine
DX: D47.1 Chronic myeloproliferative disease (principal)

== ENCOUNTER → 2020-12-05 | Outpatient (CLI) | payer MEDICARE, OTHER ==
[2020-12-05 09:19] LABS: HEMATOCRIT 41.2 % (42.0-52.0); HEMOGLOBIN 14.5 g/dL (13.5-18.0); MEAN CELL VOLUME 115 fl (78-100); MEAN CORPUSCULAR HEMOGLOBIN 41 pg (27-31); MEAN CORPUSCULAR HGB CONC 35 g/dL (33-37); MEAN PLATELET VOLUME 11.7 fl (7.4-10.4); PLATELET COUNT 181 K/mm3 (130-400); RED BLOOD COUNT 3.58 M/mm3 (4.20-5.60); RED CELL DISTRIBUTION WIDTH 14.2 % (11.5-14.5); WHITE BLOOD COUNT 9.7 K/mm3 (4.8-10.8)
[2020-12-05 09:34] LABS: ALBUMIN 4.2 g/dL (3.4-4.8); POTASSIUM 4.7 mmol/L (3.5-5.1)
[2020-12-05 09:37] LABS: TOTAL PROTEIN 6.7 g/dL (6.2-8.1)
[2020-12-05 09:39] LABS: TOTAL BILIRUBIN 1.2 mg/dL (0.2-1.2)
[2020-12-05 15:45] LABS: LYMPHOCYTE 11 % (20-51); MONOCYTE 2 % (3-10); NEUTROPHILS 86 % (42-75); POLYCHROMASIA 1+
== END ==
LOC: LAB 08:54
PROVIDERS: Internal Medicine
DX: D47.1 Chronic myeloproliferative disease (principal)

== ENCOUNTER → 2021-03-06 | Outpatient (CLI) | payer MEDICARE, OTHER ==
[2021-03-06 09:48] LABS: BASO # 0.06 (0.02-0.10); EOS # 0.04 (0.04-0.40); EOS % 0.4 % (0.0-4.0); HEMATOCRIT 40.2 % (42.0-52.0); LYMPH# 1.09 (1.50-4.00); MEAN CELL VOLUME 118 fl (78-100); MEAN CORPUSCULAR HEMOGLOBIN 41 pg (27-31); MEAN CORPUSCULAR HGB CONC 35 g/dL (33-37); MEAN PLATELET VOLUME 11.8 fl (7.4-10.4); MONO # 0.32 (0.20-0.80); PLATELET COUNT 172 K/mm3 (130-400); RED CELL DISTRIBUTION WIDTH 14.2 % (11.5-14.5); WHITE BLOOD COUNT 9.6 K/mm3 (4.8-10.8)
[2021-03-06 09:53] LABS: ALBUMIN 4.1 g/dL (3.4-4.8)
[2021-03-06 09:54] LABS: CALCIUM 9.3 mg/dL (8.3-10.5)
[2021-03-06 09:56] LABS: TOTAL PROTEIN 6.3 g/dL (6.2-8.1)
[2021-03-06 09:57] LABS: TOTAL BILIRUBIN 1.6 mg/dL (0.2-1.2)
== END ==
LOC: LAB 09:20
PROVIDERS: Internal Medicine
DX: D47.1 Chronic myeloproliferative disease (principal)

== ENCOUNTER → 2021-05-31 | Outpatient (CLI) | payer MEDICARE, OTHER ==
[2021-05-31 08:57] LABS: EOS % 0.7 % (0.0-4.0); HEMATOCRIT 44.8 % (42.0-52.0); HEMOGLOBIN 15.3 g/dL (13.5-18.0); LYMPH# 1.02 K/mm3 (1.50-4.00); MEAN CELL VOLUME 119 fl (78-100); MEAN CORPUSCULAR HEMOGLOBIN 41 pg (27-31); MEAN CORPUSCULAR HGB CONC 34 g/dL (33-37); MONO # 0.34 K/mm3 (0.20-0.80); NEU # 12.01 K/mm3 (1.40-6.50); PLATELET COUNT 207 K/mm3 (130-400); RED BLOOD COUNT 3.77 M/mm3 (4.20-5.60); RED CELL DISTRIBUTION WIDTH 13.4 % (11.5-14.5); WHITE BLOOD COUNT 13.6 K/mm3 (4.8-10.8)
[2021-05-31 09:05] LABS: ALBUMIN 4.2 g/dL (3.4-4.8); POTASSIUM 4.1 mmol/L (3.5-5.1)
[2021-05-31 09:06] LABS: CALCIUM 9.6 mg/dL (8.3-10.5)
[2021-05-31 09:07] LABS: TOTAL PROTEIN 6.5 g/dL (6.2-8.1)
[2021-05-31 09:09] LABS: TOTAL BILIRUBIN 1.5 mg/dL (0.2-1.2)
== END ==
LOC: LAB 08:25
PROVIDERS: Internal Medicine
DX: Z01.89 Encounter for other specified special examinations (principal)

== ENCOUNTER → 2021-07-25 | Outpatient (CLI) | payer MEDICARE, OTHER ==
[2021-07-25 09:46] LABS: HEMATOCRIT 44.8 % (42.0-52.0); HEMOGLOBIN 15.7 g/dL (13.5-18.0); MEAN CELL VOLUME 115 fl (78-100); MEAN CORPUSCULAR HEMOGLOBIN 40 pg (27-31); MEAN CORPUSCULAR HGB CONC 35 g/dL (33-37); MEAN PLATELET VOLUME 11.7 fl (7.4-10.4); PLATELET COUNT 195 K/mm3 (130-400); RED BLOOD COUNT 3.91 M/mm3 (4.20-5.60); RED CELL DISTRIBUTION WIDTH 13.8 % (11.5-14.5); WHITE BLOOD COUNT 12.6 K/mm3 (4.8-10.8)
[2021-07-25 09:59] LABS: ALBUMIN 4.3 g/dL (3.4-4.8); POTASSIUM 3.9 mmol/L (3.5-5.1)
[2021-07-25 10:00] LABS: CALCIUM 9.2 mg/dL (8.3-10.5)
[2021-07-25 10:01] LABS: TOTAL PROTEIN 6.5 g/dL (6.2-8.1)
[2021-07-25 10:03] LABS: TOTAL BILIRUBIN 1.5 mg/dL (0.2-1.2)
[2021-07-25 13:04] LABS: LYMPHOCYTE 12 % (20-51); MONOCYTE 3 % (3-10); NEUTROPHILS 85 % (42-75)
== END ==
LOC: LAB 09:18
PROVIDERS: Internal Medicine
DX: D47.1 Chronic myeloproliferative disease (principal); Z01.89 Encounter for other specified special examinations

== ENCOUNTER → 2021-09-05 | Outpatient (CLI) | payer MEDICARE, OTHER ==
[2021-09-05 13:13] LABS: BASO # 0.08 K/mm3 (0.02-0.10); EOS # 0.08 K/mm3 (0.04-0.40); EOS % 0.6 % (0.0-4.0); HEMATOCRIT 44.8 % (42.0-52.0); HEMOGLOBIN 15.4 g/dL (13.5-18.0); LYMPH# 1.31 K/mm3 (1.50-4.00); MEAN CELL VOLUME 118 fl (78-100); MEAN CORPUSCULAR HEMOGLOBIN 41 pg (27-31); MEAN CORPUSCULAR HGB CONC 34 g/dL (33-37); MEAN PLATELET VOLUME 11.4 fl (7.4-10.4); MONO # 0.45 K/mm3 (0.20-0.80); NEU # 11.75 K/mm3 (1.40-6.50); PLATELET COUNT 226 K/mm3 (130-400); RED CELL DISTRIBUTION WIDTH 14.1 % (11.5-14.5); WHITE BLOOD COUNT 13.7 K/mm3 (4.8-10.8)
[2021-09-05 13:37] LABS: ALBUMIN 4.4 g/dL (3.4-4.8); POTASSIUM 4.2 mmol/L (3.5-5.1)
[2021-09-05 13:39] LABS: CALCIUM 9.6 mg/dL (8.3-10.5)
[2021-09-05 13:40] LABS: TOTAL PROTEIN 6.8 g/dL (6.2-8.1)
[2021-09-05 13:42] LABS: TOTAL BILIRUBIN 1.3 mg/dL (0.2-1.2)
== END ==
LOC: LAB 13:00
PROVIDERS: Internal Medicine
DX: D47.1 Chronic myeloproliferative disease (principal)

== ENCOUNTER → 2021-10-17 | Outpatient (CLI) | payer MEDICARE, OTHER ==
[2021-10-17 11:04] LABS: BASO # 0.07 K/mm3 (0.02-0.10); EOS # 0.05 K/mm3 (0.04-0.40); EOS % 0.4 % (0.0-4.0); LYMPH# 1.09 K/mm3 (1.50-4.00); MEAN CELL VOLUME 120 fl (78-100); MEAN CORPUSCULAR HEMOGLOBIN 41 pg (27-31); MEAN CORPUSCULAR HGB CONC 34 g/dL (33-37); MEAN PLATELET VOLUME 12.4 fl (7.4-10.4); MONO # 0.33 K/mm3 (0.20-0.80); NEU # 10.36 K/mm3 (1.40-6.50); PLATELET COUNT 179 K/mm3 (130-400); RED BLOOD COUNT 3.66 M/mm3 (4.20-5.60); RED CELL DISTRIBUTION WIDTH 14.5 % (11.5-14.5); WHITE BLOOD COUNT 11.9 K/mm3 (4.8-10.8)
[2021-10-17 11:09] LABS: ALBUMIN 4.4 g/dL (3.4-4.8)
[2021-10-17 11:11] LABS: CALCIUM 9.3 mg/dL (8.3-10.5)
[2021-10-17 11:12] LABS: TOTAL PROTEIN 6.6 g/dL (6.2-8.1)
[2021-10-17 11:14] LABS: TOTAL BILIRUBIN 1.6 mg/dL (0.2-1.2)
== END ==
LOC: LAB 09:18
PROVIDERS: Internal Medicine
DX: D47.1 Chronic myeloproliferative disease (principal)

== ENCOUNTER → 2021-11-28 | Outpatient (CLI) | payer MEDICARE, OTHER ==
[2021-11-28 12:46] LABS: BASO # 0.06 K/mm3 (0.02-0.10); EOS # 0.06 K/mm3 (0.04-0.40); EOS % 0.7 % (0.0-4.0); HEMATOCRIT 38.8 % (42.0-52.0); HEMOGLOBIN 13.6 g/dL (13.5-18.0); LYMPH# 0.93 K/mm3 (1.50-4.00); MEAN CELL VOLUME 122 fl (78-100); MEAN CORPUSCULAR HEMOGLOBIN 43 pg (27-31); MEAN CORPUSCULAR HGB CONC 35 g/dL (33-37); MEAN PLATELET VOLUME 11.8 fl (7.4-10.4); MONO # 0.27 K/mm3 (0.20-0.80); NEU # 7.31 K/mm3 (1.40-6.50); PLATELET COUNT 136 K/mm3 (130-400); RED BLOOD COUNT 3.18 M/mm3 (4.20-5.60); RED CELL DISTRIBUTION WIDTH 14.4 % (11.5-14.5); WHITE BLOOD COUNT 8.7 K/mm3 (4.8-10.8)
[2021-11-28 12:52] LABS: ALBUMIN 4.2 g/dL (3.4-4.8); POTASSIUM 4.7 mmol/L (3.5-5.1)
[2021-11-28 12:53] LABS: CALCIUM 9.1 mg/dL (8.3-10.5)
[2021-11-28 12:54] LABS: TOTAL PROTEIN 6.4 g/dL (6.2-8.1)
[2021-11-28 12:56] LABS: TOTAL BILIRUBIN 1.7 mg/dL (0.2-1.2)
== END ==
LOC: LAB 12:31
PROVIDERS: Internal Medicine
DX: D47.1 Chronic myeloproliferative disease (principal)

== ENCOUNTER → 2022-03-08 | Outpatient (CLI) | payer MEDICARE, OTHER ==
[2022-03-08 13:13] LABS: HEMATOCRIT 41.9 % (42.0-52.0); HEMOGLOBIN 14.7 g/dL (13.5-18.0); MEAN PLATELET VOLUME 13.7 fl (7.4-10.4); RED BLOOD COUNT 3.51 M/mm3 (4.20-5.60); RED CELL DISTRIBUTION WIDTH 14.1 % (11.5-14.5); WHITE BLOOD COUNT 5.6 K/mm3 (4.8-10.8)
== END ==
LOC: LAB 12:45
PROVIDERS: Internal Medicine
DX: D47.1 Chronic myeloproliferative disease (principal)

== ENCOUNTER → 2022-09-19 | Outpatient (CLI) | payer MEDICARE, OTHER ==
[2022-09-19 10:05] LABS: BASO # 0.05 K/mm3 (0.02-0.10); EOS # 0.05 K/mm3 (0.04-0.40); EOS % 0.6 % (0.0-4.0); HEMATOCRIT 41.1 % (42.0-52.0); HEMOGLOBIN 14.1 g/dL (13.5-18.0); LYMPH# 0.84 K/mm3 (1.50-4.00); MEAN CELL VOLUME 122 fl (78-100); MEAN CORPUSCULAR HEMOGLOBIN 42 pg (27-31); MEAN CORPUSCULAR HGB CONC 34 g/dL (33-37); MEAN PLATELET VOLUME 11.6 fl (7.4-10.4); MONO # 0.21 K/mm3 (0.20-0.80); NEU # 7.35 K/mm3 (1.40-6.50); PLATELET COUNT 197 K/mm3 (130-400); RED BLOOD COUNT 3.38 M/mm3 (4.20-5.60); RED CELL DISTRIBUTION WIDTH 13.7 % (11.5-14.5); WHITE BLOOD COUNT 8.5 K/mm3 (4.8-10.8)
[2022-09-19 10:08] LABS: ALBUMIN 4.3 g/dL (3.4-4.8); POTASSIUM 3.8 mmol/L (3.5-5.1)
[2022-09-19 10:10] LABS: CALCIUM 9.1 mg/dL (8.3-10.5)
[2022-09-19 10:11] LABS: TOTAL PROTEIN 6.3 g/dL (6.2-8.1)
[2022-09-19 10:13] LABS: TOTAL BILIRUBIN 1.3 mg/dL (0.2-1.2)
== END ==
LOC: LAB 09:41
PROVIDERS: Internal Medicine
DX: D47.1 Chronic myeloproliferative disease (principal)

== ENCOUNTER → 2023-07-09 | Outpatient (CLI) | payer MEDICARE, OTHER ==
[2023-07-09 09:54] LABS: BASO # 0.08 K/mm3 (0.02-0.10); EOS # 0.03 K/mm3 (0.04-0.40); EOS % 0.3 % (0.0-4.0); HEMATOCRIT 41.2 % (42.0-52.0); HEMOGLOBIN 14.1 g/dL (13.5-18.0); MEAN CELL VOLUME 123 fl (78-100); MEAN CORPUSCULAR HEMOGLOBIN 42 pg (27-31); MEAN CORPUSCULAR HGB CONC 34 g/dL (33-37); MEAN PLATELET VOLUME 11.6 fl (7.4-10.4); MONO # 0.22 K/mm3 (0.20-0.80); NEU # 8.56 K/mm3 (1.40-6.50); PLATELET COUNT 228 K/mm3 (130-400); RED BLOOD COUNT 3.34 M/mm3 (4.20-5.60); RED CELL DISTRIBUTION WIDTH 14.6 % (11.5-14.5); WHITE BLOOD COUNT 9.6 K/mm3 (4.8-10.8)
[2023-07-09 10:01] LABS: ALBUMIN 4.5 g/dL (3.4-4.8)
[2023-07-09 10:03] LABS: CALCIUM 9.3 mg/dL (8.3-10.5)
[2023-07-09 10:04] LABS: TOTAL PROTEIN 6.3 g/dL (6.2-8.1)
[2023-07-09 10:06] LABS: TOTAL BILIRUBIN 1.5 mg/dL (0.2-1.2)
== END ==
LOC: LAB 09:41
PROVIDERS: Nurse Practitioner
DX: D47.1 Chronic myeloproliferative disease (principal)

== ENCOUNTER → 2023-10-08 | Outpatient (CLI) | payer MEDICARE, OTHER ==
[2023-10-08 09:32] LABS: BASO # 0.08 K/mm3 (0.02-0.10); EOS # 0.03 K/mm3 (0.04-0.40); EOS % 0.3 % (0.0-4.0); HEMOGLOBIN 14.5 g/dL (13.5-18.0); LYMPH# 0.62 K/mm3 (1.50-4.00); MEAN CELL VOLUME 128 fl (78-100); MEAN CORPUSCULAR HEMOGLOBIN 43 pg (27-31); MEAN CORPUSCULAR HGB CONC 34 g/dL (33-37); MEAN PLATELET VOLUME 12.1 fl (7.4-10.4); MONO # 0.23 K/mm3 (0.20-0.80); NEU # 9.13 K/mm3 (1.40-6.50); PLATELET COUNT 248 K/mm3 (130-400); RED BLOOD COUNT 3.35 M/mm3 (4.20-5.60); RED CELL DISTRIBUTION WIDTH 13.8 % (11.5-14.5); WHITE BLOOD COUNT 10.1 K/mm3 (4.8-10.8)
[2023-10-08 09:47] LABS: ALBUMIN 4.5 g/dL (3.4-4.8)
[2023-10-08 09:48] LABS: CALCIUM 9.9 mg/dL (8.3-10.5)
[2023-10-08 09:49] LABS: TOTAL PROTEIN 6.5 g/dL (6.2-8.1)
[2023-10-08 09:51] LABS: TOTAL BILIRUBIN 1.7 mg/dL (0.2-1.2)
== END ==
LOC: LAB 09:14
PROVIDERS: Nurse Practitioner
DX: D47.1 Chronic myeloproliferative disease (principal)

== ENCOUNTER → 2024-01-06 | Outpatient (CLI) | payer MEDICARE, OTHER ==
[2024-01-06 11:20] LABS: BASO # 0.12 K/mm3 (0.02-0.10); EOS # 0.04 K/mm3 (0.04-0.40); EOS % 0.3 % (0.0-4.0); HEMATOCRIT 44.6 % (42.0-52.0); HEMOGLOBIN 15.3 g/dL (13.5-18.0); LYMPH# 0.88 K/mm3 (1.50-4.00); MEAN CELL VOLUME 124 fl (78-100); MEAN CORPUSCULAR HEMOGLOBIN 43 pg (27-31); MEAN CORPUSCULAR HGB CONC 34 g/dL (33-37); MEAN PLATELET VOLUME 12.2 fl (7.4-10.4); MONO # 0.46 K/mm3 (0.20-0.80); PLATELET COUNT 292 K/mm3 (130-400); RED BLOOD COUNT 3.59 M/mm3 (4.20-5.60); RED CELL DISTRIBUTION WIDTH 14.1 % (11.5-14.5); WHITE BLOOD COUNT 12.3 K/mm3 (4.8-10.8)
[2024-01-06 11:22] LABS: ALBUMIN 4.4 g/dL (3.4-4.8)
[2024-01-06 11:24] LABS: CALCIUM 9.9 mg/dL (8.3-10.5)
[2024-01-06 11:25] LABS: TOTAL PROTEIN 6.7 g/dL (6.2-8.1)
[2024-01-06 11:27] LABS: TOTAL BILIRUBIN 1.3 mg/dL (0.2-1.2)
== END ==
LOC: LAB 10:56
PROVIDERS: Nurse Practitioner
DX: D47.1 Chronic myeloproliferative disease (principal)

== ENCOUNTER → 2024-04-07 | Outpatient (CLI) | payer MEDICARE, OTHER ==
[2024-04-07 10:11] LABS: BASO # 0.08 K/mm3 (0.02-0.10); EOS # 0.05 K/mm3 (0.04-0.40); EOS % 0.4 % (0.0-4.0); HEMATOCRIT 43.2 % (42.0-52.0); HEMOGLOBIN 14.6 g/dL (13.5-18.0); LYMPH# 0.82 K/mm3 (1.50-4.00); MEAN CELL VOLUME 125 fl (78-100); MEAN CORPUSCULAR HEMOGLOBIN 42 pg (27-31); MEAN CORPUSCULAR HGB CONC 34 g/dL (33-37); MONO # 0.27 K/mm3 (0.20-0.80); NEU # 11.45 K/mm3 (1.40-6.50); PLATELET COUNT 254 K/mm3 (130-400); RED BLOOD COUNT 3.46 M/mm3 (4.20-5.60); RED CELL DISTRIBUTION WIDTH 14.3 % (11.5-14.5); WHITE BLOOD COUNT 12.7 K/mm3 (4.8-10.8)
[2024-04-07 10:16] LABS: ALBUMIN 4.4 g/dL (3.4-4.8)
[2024-04-07 10:17] LABS: CALCIUM 9.2 mg/dL (8.3-10.5)
[2024-04-07 10:19] LABS: TOTAL PROTEIN 6.6 g/dL (6.2-8.1)
[2024-04-07 10:20] LABS: TOTAL BILIRUBIN 1.4 mg/dL (0.2-1.2)
== END ==
LOC: LAB 09:49
PROVIDERS: Nurse Practitioner
DX: D47.1 Chronic myeloproliferative disease (principal)

== ENCOUNTER → 2024-07-07 | Outpatient (CLI) | payer MEDICARE, OTHER ==
[2024-07-07 10:13] LABS: BASO # 0.15 K/mm3 (0.02-0.10); EOS # 0.04 K/mm3 (0.04-0.40); EOS % 0.3 % (0.0-4.0); LYMPH# 0.83 K/mm3 (1.50-4.00); MEAN CELL VOLUME 124 fl (78-100); MEAN CORPUSCULAR HEMOGLOBIN 42 pg (27-31); MEAN CORPUSCULAR HGB CONC 34 g/dL (33-37); MEAN PLATELET VOLUME 12.3 fl (7.4-10.4); MONO # 0.35 K/mm3 (0.20-0.80); NEU # 13.01 K/mm3 (1.40-6.50); PLATELET COUNT 258 K/mm3 (130-400); RED BLOOD COUNT 3.55 M/mm3 (4.20-5.60); RED CELL DISTRIBUTION WIDTH 13.4 % (11.5-14.5); WHITE BLOOD COUNT 14.5 K/mm3 (4.8-10.8)
[2024-07-07 10:17] LABS: ALBUMIN 4.2 g/dL (3.4-4.8)
[2024-07-07 10:19] LABS: CALCIUM 9.3 mg/dL (8.3-10.5)
[2024-07-07 10:20] LABS: TOTAL PROTEIN 6.3 g/dL (6.2-8.1)
[2024-07-07 10:22] LABS: TOTAL BILIRUBIN 0.9 mg/dL (0.2-1.2)
== END ==
LOC: LAB 09:54
PROVIDERS: Internal Medicine
DX: D47.1 Chronic myeloproliferative disease (principal)

== ENCOUNTER → 2024-08-11 | Outpatient (CLI) | payer MEDICARE, OTHER ==
[2024-08-11 09:42] LABS: BASO # 0.12 K/mm3 (0.02-0.10); EOS # 0.04 K/mm3 (0.04-0.40); EOS % 0.3 % (0.0-4.0); HEMATOCRIT 44.8 % (42.0-52.0); HEMOGLOBIN 15.2 g/dL (13.5-18.0); LYMPH# 0.74 K/mm3 (1.50-4.00); MEAN CELL VOLUME 122 fl (78-100); MEAN CORPUSCULAR HEMOGLOBIN 41 pg (27-31); MEAN CORPUSCULAR HGB CONC 34 g/dL (33-37); MONO # 0.24 K/mm3 (0.20-0.80); NEU # 10.62 K/mm3 (1.40-6.50); PLATELET COUNT 258 K/mm3 (130-400); RED BLOOD COUNT 3.68 M/mm3 (4.20-5.60); RED CELL DISTRIBUTION WIDTH 13.8 % (11.5-14.5); WHITE BLOOD COUNT 11.8 K/mm3 (4.8-10.8)
== END ==
LOC: LAB 09:19
PROVIDERS: Internal Medicine
DX: D47.1 Chronic myeloproliferative disease (principal)

== ENCOUNTER → 2024-09-08 | Outpatient (CLI) | payer MEDICARE, OTHER ==
[2024-09-08 10:07] LABS: HEMATOCRIT 45.6 % (42.0-52.0); HEMOGLOBIN 15.3 g/dL (13.5-18.0); MEAN CELL VOLUME 119 fl (78-100); MEAN CORPUSCULAR HEMOGLOBIN 40 pg (27-31); MEAN CORPUSCULAR HGB CONC 34 g/dL (33-37); MEAN PLATELET VOLUME 11.7 fl (7.4-10.4); PLATELET COUNT 370 K/mm3 (130-400); RED BLOOD COUNT 3.84 M/mm3 (4.20-5.60); RED CELL DISTRIBUTION WIDTH 13.6 % (11.5-14.5); WHITE BLOOD COUNT 9.5 K/mm3 (4.8-10.8)
[2024-09-08 10:27] LABS: BAND 1 % (0-10); LYMPHOCYTE 14 % (20-51); MONOCYTE 3 % (3-10); NEUTROPHILS 81 % (42-75)
== END ==
LOC: LAB 09:18
PROVIDERS: Internal Medicine
DX: D47.1 Chronic myeloproliferative disease (principal)

== ENCOUNTER → 2024-09-16 | Outpatient (CLI) | payer MEDICARE, OTHER ==
[~2024-09-16] MED LIST: ALLOPURINOL300 M1 PO; DIOVAN320 MG PO; HYDROXYUREA500 M1 PO; LIPITOR 40MG TA40 MG PO; LOW DOSE ASPIRI81 M1 PO; NORVASC 10MG10 MG PO
[2024-09-16 09:38] LABS: HEMATOCRIT 43.5 % (42.0-52.0); HEMOGLOBIN 14.7 g/dL (13.5-18.0)
[2024-09-16 10:25] VITALS: BP 159/77
[2024-09-16 10:26] VITALS: BP 143/72
== END ==
LOC: LAB 08:55 → AMSURD 08:55
PROVIDERS: Internal Medicine
DX: D47.1 Chronic myeloproliferative disease (principal)

== ENCOUNTER → 2024-09-29 | Outpatient (CLI) | payer MEDICARE, OTHER ==
[2024-09-29 09:32] LABS: BASO # 0.09 K/mm3 (0.02-0.10); EOS # 0.03 K/mm3 (0.04-0.40); EOS % 0.3 % (0.0-4.0); HEMATOCRIT 42.2 % (42.0-52.0); HEMOGLOBIN 14.3 g/dL (13.5-18.0); LYMPH# 0.75 K/mm3 (1.50-4.00); MEAN CELL VOLUME 119 fl (78-100); MEAN CORPUSCULAR HEMOGLOBIN 40 pg (27-31); MEAN CORPUSCULAR HGB CONC 34 g/dL (33-37); MEAN PLATELET VOLUME 12.2 fl (7.4-10.4); MONO # 0.19 K/mm3 (0.20-0.80); NEU # 7.89 K/mm3 (1.40-6.50); PLATELET COUNT 204 K/mm3 (130-400); RED BLOOD COUNT 3.54 M/mm3 (4.20-5.60); RED CELL DISTRIBUTION WIDTH 15.3 % (11.5-14.5)
[2024-09-29 09:43] LABS: ALBUMIN 4.2 g/dL (3.4-4.8)
[2024-09-29 09:44] LABS: CALCIUM 9.2 mg/dL (8.3-10.5)
[2024-09-29 09:46] LABS: TOTAL PROTEIN 7.1 g/dL (6.2-8.1)
[2024-09-29 09:47] LABS: TOTAL BILIRUBIN 1.5 mg/dL (0.2-1.2)
== END ==
LOC: LAB 09:07
PROVIDERS: Internal Medicine
DX: D47.1 Chronic myeloproliferative disease (principal)